=== PATIENT | female | born 1950 | race Caucasian/White ===

== ENCOUNTER 2017-03-05 09:24 | Day surgery (SDC) | payer OTHER ==
[~2017-03-05] VITALS: Ht 160 cm; Wt 68.1 kg
[2017-03-05] MEDS ORDERED: LISINOPRIL (09:49)
[2017-03-05] MEDS ORDERED: SIMVASTATIN (09:49)
[2017-03-05] MEDS ORDERED: ALENDRONATE SODIUM (09:49)
[2017-03-05 09:52] VITALS: Ht 160 cm; Wt 68.1 kg
[2017-03-05 10:11] VITALS: BP 147/76; PULSE 63; RESP 18
[2017-03-05] MEDS ORDERED: MIDAZOLAM 1 MG/ML 2 ML INJ ONE ×2 (10:53)
[2017-03-05] MEDS ORDERED: FENTAnyl 50 MCG/ML VIAL ONE (10:53)
--- NOTE | 2017-03-06 01:40 | GILP ---
DATE OF PROCEDURE: PREOPERATIVE DIAGNOSIS: Screening colonoscopy to rule out colon polyps. POSTOPERATIVE DIAGNOSES: 1. A 3 mm flat polyp, benign-looking polyp noted at 40 cm from the anus in the distal descending co andrea. This was removed with a cold biopsy forceps. 2. Minimal external hemorrhoids. DESCRIPTION OF PROCEDURE: After informed written consent was obtained, the patient was asked to lie on the left lateral side. A total of 3 mg Versed and 50 mcg of fentanyl was given as intravenous a nesthesia. When the patient became somnolent, the Olympus video colonoscope was introduced into the rectum. Th e scope was advanced all the way to the cecum. Entire colon appeared normal, but about 40 cm from t he anus, there was evidence of a 3 mm flat polyp which was benign looking, with no bleeding noted. This was removed with a cold biopsy forceps. Scope at this time was withdrawn. Retroflexion was pe rformed. Skin tags were noted and when the scope was withdrawn, minimal external hemorrhoids were n oted and the procedure was terminated. PLAN: Recommend wait for the pathology report. Also recommend colonoscopy in 10 years. Dictated By: SHORTY THOMSON/NTS Conf#: [id number] DID#: [id number] CC: GERMAN HILL MD;*End*
== END 2017-03-05 12:03 | disposition home or self-care (01) ==
LOC: GIL 09:24
PROVIDERS: ATTEND Internal Medicine Gastroenterology
DX: Z12.11 Encounter for screening for malignant neoplasm of colon (principal); D12.4 Benign neoplasm of descending colon; K64.8 Other hemorrhoids
CPT/HCPCS: 45380; J2250; J3010; Z7610